=== PATIENT | female | born 2000 | race Caucasian/White ===

== ENCOUNTER 2023-04-26 22:56 | Emergency (ER) | payer MEDICAID ==
[~2023-04-26] VITALS: Ht 157.5 cm; Wt 68.0 kg
[2023-04-26 23:19] VITALS: BP 106/66; O2SAT 100
[2023-04-27 00:37] VITALS: PULSE 73; RESP 18; TEMP 98.2
== END 2023-04-27 00:41 | disposition home or self-care (01) ==
LOC: ER 22:56
DX: S92.251A Displaced fracture of navicular [scaphoid] of right foot, initial encounter for closed fracture (principal); W18.30XA Fall on same level, unspecified, initial encounter; Y93.89 Activity, other specified; Y92.89 Other specified places as the place of occurrence of the external cause; Y99.8 Other external cause status
CPT/HCPCS: 29125; 73110; 81025; 99283